=== PATIENT | female | born 1975 | race African-American/Black ===

== ENCOUNTER 2022-03-14 13:26 | Outpatient (CLI) | payer BC | END 2022-03-14 13:27 | disposition home or self-care (01) | LOC: BICMAMMO 13:26 | PROVIDERS: ATTEND Family Medicine | DX: Z12.31 Encounter for screening mammogram for malignant neoplasm of breast (principal); Z80.3 Family history of malignant neoplasm of breast | CPT/HCPCS: 77063; 77067 ==

== ENCOUNTER 2022-10-27 14:24 | Day surgery (SDC) | payer MEDICAID, SELFPAY ==
[2022-10-27] MEDS ORDERED: Bupivacaine PF 0.5% 30 ML VIAL ONE (14:32)
[2022-10-27] MEDS ORDERED: Lidocaine 1% (PF) 30 ML VIAL ONE (14:32)
[2022-10-27] MEDS ORDERED: EPINEPHrine 1 MG/ML AMP ONE (14:32)
[2022-10-27] MEDS ORDERED: Fentanyl 250 MCG/5 ML VIAL ONE (15:00)
[2022-10-27] MEDS ORDERED: Midazolam HCl 2 mg/2 ml Vial ONE (15:00)
[2022-10-27] MEDS ORDERED: SUGAMMADEX SODIUM 200 MG/2 ML VIAL ONE (15:01)
[2022-10-27] MEDS ORDERED: HYDROmorphone 0.5 MG/0.5 ML SYRINGE ONE (15:01)
[2022-10-27] MEDS ORDERED: CEFAZOLIN 2 GM VIAL ONE (15:04)
[2022-10-27] MEDS ORDERED: Sodium Chloride 0.9% 100 ML ONE (15:04)
[2022-10-27] MEDS ORDERED: PROPOFOL 200 MG/20 ML VIAL ONE (15:20)
[2022-10-27] MEDS ORDERED: Metoclopramide HCl 10 MG/2 ML VIAL ONE (15:20)
[2022-10-27] MEDS ORDERED: Ondansetron PF 4 MG/2 ML Vial ONE (15:20)
[2022-10-27] MEDS ORDERED: Dexamethasone 20 MG/5 ML VIAL ONE (15:20)
[2022-10-27] MEDS ORDERED: Rocuronium Bromide 10 MG/ML (10ML VIAL) ONE (15:20)
[2022-10-27] MEDS ORDERED: Lidocaine 1% PF 5 ML VIAL ONE (15:20)
[2022-10-27] MEDS ORDERED: Ketorolac Tromethamine 30 MG/ML VIAL ONE (15:20)
[2022-10-27] MEDS ORDERED: Acetaminophen 325 MG TAB PO PRN (16:38)
[2022-10-27] MEDS ORDERED: HYDROcodone/Acetaminophen 5/325 mg Tablet PO PRN ×2 (16:38)
[2022-10-27] MEDS ORDERED: Fentanyl 100 MCG/2 ML VIAL ONE (17:22)
[2022-10-27] MEDS ORDERED: HYDROcodone/Acetaminophen 5/325 mg Tablet ONE ×2 (18:24)
== END 2022-10-27 19:05 | disposition home or self-care (01) ==
LOC: SDC 14:24
PROVIDERS: ATTEND Surgery
PROC: 0WUF4JZ Supplement Abdominal Wall with Synthetic Substitute, Percutaneous Endoscopic Approach (ICD-10-PCS; principal; 2022-10-27)
PROC: 8E0W4CZ Robotic Assisted Procedure of Trunk Region, Percutaneous Endoscopic Approach (ICD-10-PCS; principal; 2022-10-27)
DX: K42.0 Umbilical hernia with obstruction, without gangrene (principal); I10 Essential (primary) hypertension; E66.3 Overweight; Z68.42 Body mass index [BMI] 45.0-49.9, adult; Z79.899 Other long term (current) drug therapy
CPT/HCPCS: C1781; J0171; J1100; J1170; J1885; J2001; J2250; J2405; J2704; J2765; J3010; J3490; S0020

== ENCOUNTER 2024-06-10 14:01 | Outpatient (CLI) | payer OTHER | END 2024-06-10 14:02 | disposition home or self-care (01) | LOC: BICMAMMO 14:01 | PROVIDERS: ATTEND Nurse Practitioner Family | DX: N64.89 Other specified disorders of breast (principal) | CPT/HCPCS: G0279 ==